=== PATIENT | female | born 1960 | race Native Hawaiian/Other Pacific Islander ===

== ENCOUNTER → 2017-02-22 14:38 | Outpatient (CLI) | payer OTHER | END | disposition home or self-care (01) | LOC: AMB 14:38 | DX: Z04.1 Encounter for examination and observation following transport accident (principal) ==

== ENCOUNTER 2020-07-12 10:23 | Outpatient (CLI) | payer BC, OTHER | END 2020-07-12 23:59 | disposition home or self-care (01) | LOC: INF 10:23 | PROVIDERS: ATTEND Internal Medicine | DX: Z23 Encounter for immunization (principal) | CPT/HCPCS: 96372 ==

== ENCOUNTER 2020-08-09 10:20 | Outpatient (CLI) | payer BC, OTHER | END 2020-08-09 21:47 | disposition home or self-care (01) | LOC: INF 10:20 | PROVIDERS: ATTEND Internal Medicine | DX: Z23 Encounter for immunization (principal) | CPT/HCPCS: 96372 ==